=== PATIENT | female | born 2000 | race Caucasian/White ===

== ENCOUNTER 2024-05-18 21:54 | Outpatient (CLI) | payer BC ==
[2024-05-19 00:17] VITALS: BP 134/89; PULSE 123; RESP 16; TEMP 97.7
--- NOTE | 2024-05-19 11:46 | P.MSEPDOC ---
Presenting Problems - Arrival Data Date of Arrival on Unit: 05/19/24 Time of Arrival on Unit: 21:54 Mode of Transport: Ambulatory - Complaint OB-Reason for Admission/Chief Complaint: Possible Onset of Labor Comment: Patient presents to triage with complaints of contractions starting at 1800 ranging from 7-11 minutes apart. Medical History - Information : 1 Para: 0 Term: 0 : 0 Abortions: Spontaneous or Elective: 0 Number of Living Children: 0 - Gestational Age Gestational Age by TANMAY (wks/days): 36 Weeks and 6 Days Review of Systems - Review of Systems Constitutional: No problems Breast: No problems ENT: No problems Cardiovascular: No problems Respiratory: No problems Gastrointestinal: No problems Genitourinary: No problems Musculoskeletal: No problems Neurological: No problems Skin: No problems Vital Signs - Temperature Temperature: 97.7 F Temperature Source: Temporal Artery Scan - Pulse Pulse Oximetery Pulse Rate: 123 Pulse Assessment Method: Pulse Oximetry - Respirations Respiratory Rate: 16 Oxygen Delivery Method: Room Air O2 Sat by Pulse Oximetry: 97 - Blood Pressure Right Arm Blood Pressure: 134/89 Blood Pressure Mean: 104 Blood Pressure Source: Automatic Cuff Medical Screen Scoring - Cervical Exam Dilation (cm): 0 Effacement (%): 0 Membranes: Intact - Uterine Contractions Frequency From (mins): 2 Frequency To (mins): 5 Duration From (seconds): 20 Duration To (seconds): 60 Intensity: Mild Resting: Soft to palpation - Assessment - Baby A Baseline FHR: 135 Heart Rate - NICHD Category: Category I (Normal) NST: Reactive Physician Notification - Physician Notified Physician Notified Date: 05/18/24 Physician Notified Time: 23:32 Physician: Cristal Peace Order Received: Yes (Discharge to Home.) - Notification Comment Comment: Dr. Peace states to offer patient to be admitted for observation overnight and given a morphine rest. If patient refuses morphine rest to discharge home and continue with follow up tomorrow with OB. RN spoke with patient about the morphine rest. Education given to the patient about being admitted and continuously monitor throughout the night and given morphine to help with the contraction pain. Patient refuses the morphine rest and states she doesn't need pain management for the contractions at this time. Dr. Ellis notified of patients refusal of morphine rest, orders to discharge home with instructions to keep appointment with Dr. Ayoub tomorrow afternoon. Maternal Triage Index - Maternal Triage Index Presenting for scheduled procedure w/no complaint: No - Stat/Priority 1 Stat Priority 1: No - Urgent/Priority 2 Urgent Priority 2: No - Prompt/Priority 3 Prompt Priority 3: Yes Criteria Met for Priority 3: Dr. Peace called with triage report. RN reported , 36 5/7 weeks gestation. Complaint of contractions every 7-11 minutes since 1800 tonight. Feeling pain in ribs, rating pain with contractions 3-4/10. Reactive NST, contractions tracing every 2-5 minutes with periods of irregularity, abdomen soft and non tender upon palpation in between contractions. Stable vital signs. RN also reported pt. had a visit to triage earlier this morning and cervical exam was unchaged from then, closed and thick. Patient UA results from this morning 3+ ketones, was given 3L of LR and Turbutaline x1 dose and heart rate spiked to 130-140', and no more Turbutaline was given. Patient denies vaginal bleeding and leaking fluids. Patient states she is still feeling baby move. Disposition - Disposition OB Disposition: Discharge to home Discharge Date: 05/18/24 Discharge Time: 23:46 I agree with the RN Medical Screening Exam: Yes Physician's MSE Comment: I have neither seen nor examined the patient Case reviewed; plan agreed upon as documented in EMR&OBIX.: Yes Diagnosis: RELATED CONDITIONS, UNSPECIFIED, THIRD TRIMESTER
== END 2024-05-18 23:46 | disposition home or self-care (01) ==
LOC: FBPOP 21:54
PROVIDERS: ATTEND Obstetrics & Gynecology
CPT/HCPCS: 59025; 99213